=== PATIENT | male | born 1985 | race Caucasian/White ===

== ENCOUNTER 2016-12-27 15:56 | Emergency (ER) | payer MEDICAID, OTHER ==
--- NOTE | 2016-12-27 16:01 | UCPHY ---
H & P Patient Type: New HPI/ROS: HPI CHIEF COMPLAINT: Right arm pain, right shoulder pain HISTORY OF PRESENT ILLNESS: This patient 31-year-old male no significant medical or surgical history presents emergency room as he fell down stairs approximately 30 minutes ago he now has pain to the right clavicle and right lateral shoulder. He is unable to move due to pain. Elbow is intact, distally neurovascular intact good cap refill, good pulses. Significant amount of pain when you palpate along his clavicle as well as lateral right shoulder. No other injuries. Past Medical History: No medical history Past Surgical History: No surgical history Social History: Denies daily use of drugs alcohol tobacco products Family History: Noncontributory ROS REVIEW OF SYSTEMS: A comprehensive 10 point review of systems is otherwise negative aside from elements mentioned in the history of present illness. Exam Constitutional triage nursing summary reviewed, vital signs reviewed, awake/ alert. Eyes normal conjunctivae and sclera, EOMI, PERRLA. HENT normal inspection, atraumatic, moist mucus membranes, no epistaxis, neck supple/ no meningismus, no raccoon eyes. Respiratory clear to auscultation bilaterally, normal breath sounds, no respiratory distress, no wheezing. Cardiovascular rate normal, regular rhythm, no murmur, no edema, distal pulses normal. Gastrointestinal soft, non-tender, no rebound, no guarding, normal bowel sounds, no distension, no pulsatile mass. Genitourinary no CVA tenderness. Musculoskeletal right shoulder: tender palpation over the clavicle, and lateral right shoulder, distally neurovascular intact, good cap refill, good pulses, obvious deformity right clavicle, no midline vertebral tenderness, full range of motion, no calf swelling, no tenderness of extremities, no meningismus , good pulses, neurovascularly intact. Skin pink, warm, & dry, no rash, skin atraumatic. Neurologic awake, alert and oriented x 3, AAOx3, moves all 4 extremities equally, motor intact, sensory intact, CN II-XII intact, normal cerebellar, normal vision, normal speech. Psychiatric normal mood/affect. Heme/Lymph/Immune no lymphadenopathy. Differential Diagnosis: Includes but is not limited to in a particular order, shoulder contusion, right clavicle fracture, right shoulder fracture, dislocation Medical Decision Making: Plan for this patient x-ray right shoulder, right clavicle, Senatobia for pain control. Sling. Re-evaluation: ED x-ray right shoulder: negative for acute fracture malalignment. Image interpreted by myself. ED x-ray clavicle right: negative for acute fracture. Possible small AC joint separation. 1642: recommend ice pack, sling, follow up with Orthopedics. Is also possible rotator cuff injury. IBU Senatobia Source: Patient - Family History Significant Family History: No pertinent family hx Constitutional: Initial Vital Signs Temperature (C) 36.6 C 12/27/16 15:59 Heart Rate 85 12/27/16 15:59 Respiratory Rate 18 12/27/16 15:59 Blood Pressure 145/66 H 12/27/16 15:59 O2 Sat (%) 96 12/27/16 15:59 O2 Delivery Mode Room Air Allergies/Adverse Reactions: Penicillins Allergy (Verified 12/27/16 15:58) Home Medications: Medication Instructions Recorded Hydrocodone/APAP 5/325 [Senatobia 1 - 2 tab PO Q4H PRN #14 tab 12/27/16 5/325] Ibuprofen [Motrin (*)] 800 mg PO Q6-8PRN #10 tab 12/27/16 Medical Decision Making - Diagnostics Imaging: Imaging Impressions Clavicle X-Ray 12/27/16 16:08 Impression: Normal exam. Shoulder X-Ray 12/27/16 16:08 Impression: Negative right shoulder radiographs. - Data Points Medications Given: Discontinued Medications Hydrocodone Bitart/Acetaminophen (Senatobia 5/325mg Prepack#6) 1 btl TAKEHOME EDNOW ONE Stop: 12/27/16 16:09 Last Admin: 12/27/16 16:38 Dose: 1 btl Hydrocodone Bitart/Acetaminophen (Senatobia 10/325) 1 tab PO EDNOW ONE Stop: 12/27/16 16:09 Last Admin: 12/27/16 16:14 Dose: 1 tab Departure - Departure Disposition: Home, Routine, Self-Care Clinical Impression: Shoulder contusion Qualifiers: Encounter type: initial encounter Laterality: right Qualified Code(s): S40.011A - Contusion of right shoulder, initial encounter AC joint pain Qualifiers: Laterality: right Qualified Code(s): M25.511 - Pain in right shoulder Condition: Good Instructions: Arthralgia (ED), Rotator Cuff Injury (ED), Shoulder Sprain (ED) Additional Instructions: 1. Stay in her sling ice her shoulder. 2. follow up with Orthopedics. 3.Take Senatobia for severe pain ibuprofen for mild pain. Referrals: NONE *PRIMARY CARE P,. [Primary Care Provider] - As per Instructions Gamal Sherman MD [Medical Doctor] - As per Instructions Prescriptions: Hydrocodone/APAP 5/325 [Senatobia 5/325] 1 - 2 tab PO Q4H PRN #14 tab PRN Reason: Pain, Moderate Ibuprofen [Motrin (*)] 800 mg PO Q6-8PRN #10 tab - PQRS PQRS Measurement: n/a
[2016-12-27 16:02] VITALS: RESP 18
[2016-12-27] MEDS ORDERED: HYDROCOD/APAP 5/325 PREPACK#6 BTL TAKEHOME ONE (16:08)
[2016-12-27] MEDS ORDERED: HYDROCODONE/APAP 10/325 TAB PO ONE (16:08)
[2016-12-27] MEDS ORDERED: HYDROCODONE/APAP 5/325 TAB ONE (16:11)
[2016-12-27 16:58] VITALS: BP 137/86; PULSE 87; TEMP 98.2; O2SAT 97
== END 2016-12-27 16:54 | disposition home or self-care (01) ==
LOC: CED 15:56
DX: S40.011A Contusion of right shoulder, initial encounter (principal); W10.9XXA Fall (on) (from) unspecified stairs and steps, initial encounter
CPT/HCPCS: 73000-PO; 73030-PO; 99204-PO; G0463-PO

== ENCOUNTER → 2017-02-24 | Outpatient (CLI) | payer MEDICAID | LOC: FIMAGING 14:32 | PROVIDERS: ATTEND Physician Assistant | DX: S43.491A Other sprain of right shoulder joint, initial encounter (principal); M75.81 Other shoulder lesions, right shoulder ==

== ENCOUNTER 2018-06-12 12:38 | Emergency (ER) | payer MEDICAID ==
[2018-06-12 12:49] VITALS: BP 127/90
--- NOTE | 2018-06-12 13:03 | EDPHY ---
H & P Time Seen by Provider: 06/12/18 12:58 HPI/ROS: CHIEF COMPLAINT: Low back pain HISTORY OF PRESENT ILLNESS: Patient is a 33-year-old male who presents emergency department low back pain. Patient states that he was 5 gal jugs of water puts them into a big container. This involves twisting motion. He does not specifically know when he hurt himself. He woke this morning with sharp low back pain. It is worse with movement. He has no numbness or weakness. No incontinence of urine or stool. No fevers or chills. No abdominal pain. Patient had no fall or trauma. REVIEW OF SYSTEMS: 10 systems were reveiwed and are negative with the exception of the elements mentioned in the history of present illness. Past Medical/Surgical History: Denies Smoking Status: Never smoked Physical Exam: Vitals noted GENERAL: Mildly uncomfortable appearing, alert. HEENT: Eyes normal to inspection, normal. NECK: Normal, supple. RESPIRATORY: Clear to auscultation bilaterally, no rales, rhonchi or wheezing. CVS: Regular rate and rhythm, no rubs, murmurs, or gallops. ABDOMEN: Soft, nontender, nondistended, no organomegaly. BACK: Normal to inspection, no CVA tenderness. No palpable mass. No redness. No deformity. SKIN: Normal color, no rash, warm, dry. No pallor. EXTREMITIES: No pedal edema, no joint swelling. NEURO/PSYCH: Alert and oriented, normal mood and affect, normal motor sensory exam. Constitutional: Initial Vital Signs Temperature (C) 36.5 C 06/12/18 12:44 Heart Rate 88 06/12/18 12:44 Respiratory Rate 18 06/12/18 12:44 Blood Pressure 127/90 H 06/12/18 12:44 O2 Sat (%) 95 06/12/18 12:44 O2 Delivery Mode Room Air Allergies/Adverse Reactions: Penicillins Allergy (Verified 06/12/18 12:44) Home Medications: Medication Instructions Recorded Cyclobenzaprine [Flexeril] 10 mg PO TID #15 tab 06/12/18 Hydrocodone/APAP 5/325 [Sutton 1 - 2 tab PO Q4 #13 tab 06/12/18 5/325 (RX)] Ibuprofen 600 mg PO Q6 #15 tablet 09/26/18 Medical Decision Making ED Course/Re-evaluation: In the emergency department I discussed possible etiologies with the patient. I answered all his questions. Patient was given Motrin 600 mg orally. Patient will be treated with pain medicine and a muscle relaxer. I discussed this with the patient. He will avoid lifting or back strain. He will follow up with Dr. Barrett or neurosurgery. Patient was given warnings prior to leaving. He will return with worsening symptoms. Differential Diagnosis: My differential includes but is not limited to muscle strain, muscle spasm, disc herniation, epidural mass, malignancy, hematoma, pyelonephritis Departure - Departure Disposition: Home, Routine, Self-Care Clinical Impression: Low back pain Qualifiers: Chronicity: acute Back pain laterality: midline Sciatica presence: without sciatica Qualified Code(s): M54.5 - Low back pain Condition: Good Instructions: Acute Low Back Pain (ED) Additional Instructions: Take your medications as directed. Avoid lifting or bending. You been given contact information for Dr. Barrett. He is back pain specialist. You also been given follow-up with Dr. Salamanca from Neurosurgery. He is also back pain specialist. Referrals: Luis Manuel Barrett MD [Medical Doctor] - 5-7 days, call for appt. Contreras Salamanca MD [Medical Doctor] - 5-7 days, call for appt. Prescriptions: Cyclobenzaprine [Flexeril] 10 mg PO TID #15 tab Hydrocodone/APAP 5/325 [Sutton 5/325 (RX)] 1 - 2 tab PO Q4 #13 tab Ibuprofen 600 mg PO Q6 #15 tablet
[2018-06-12] MEDS ORDERED: IBUPROFEN 600 MG TAB PO ONE (13:04)
== END 2018-06-12 13:17 | disposition home or self-care (01) ==
LOC: CED 12:38
DX: M54.5 Low back pain (principal)